=== PATIENT | female | born 1995 | race Caucasian/White ===

== ENCOUNTER 2018-11-14 17:31 | Emergency (ER) | payer OTHER ==
[2018-11-14 17:42] VITALS: BP 120/87; TEMP 98.7; BMI 25.8
--- NOTE | 2018-11-14 18:17 | ED.PDOC ---
General ED Provider: Dr. RENATA DUFFY Chief Complaint: Behavioral Complaint Stated Complaint: ANXIOUS OUT OF HER PYSCH MEDS STATES IF SHE GET A REFILL ON PYSCH MEDS SHE WONT CONSIDER SUICIDE BUT NO SO SURE OTHERWISE Time Seen by Physician: 17:33 (SEEN WITH CRAIG AT ALL TIMES ) Mode of Arrival: Walk-In Information Source: Patient, Family Exam Limitations: No limitations Primary Care Provider: ERNIE VU Nursing and Triage Documentation Reviewed and Agree: Yes Does patient meet sepsis criteria?: No System Inflammatory Response Syndrome: Not Applicable Sepsis Protocol: For patient's 13 years and over: Temp is 96.8 and below OR 101 and greater Pulse >90 BPM Resp >20/minute Acutely Altered Mental Status Are patient's symptoms suggestive of a new infection, such as: -Pneumonia -Skin, Soft Tissue -Endocarditis -UTI -Bone, Joint Infection -Implantable Device -Acute Abdominal Infection -Wound Infection -Meningitis -Blood Stream Catheter Infection -Unknown Psychological Complaint Exam - Psychiatric Complaint/Exam Patient Complains Of: Present: Depression, Suicidal thoughts (WAS DENIED IF MEDS ARE REFILLED. CRAIG PRESENT ATLL THE BEDSIDE ) Onset/Duration: TODAY SHE STATED HER DOCTOR LEFT THE AREA Symptoms Are: Still present Timing: Constant Episodes Lasting: Hours Initial Severity: Severe Current Severity: Severe Character: Present: Depressed, Fearful, Anxious Aggravating: Reports: None Associated Signs And Symptoms: Reports: Sleep disturbance, Appetite change. Denies: Hostile, Confused, Hallucinating, Paranoid behavior Related History: Denies: Suicidal thoughts, Suicidal plan, Suicidal gestures, Homicidal thoughts, Homicidal plan, Homicidal gestures, Prior attempts, Recent stressors Completed Suicide Risk Factors: None Patient In Custody Of Police: No Social Withdrawal Present: No Social Isolation Present: No Prior Suicide Attempt: No (MAY 2018 SEEN AT [facility] FOR THINKING OF IT NEVER DONE IT) Injury From Prior Suicide Attempt: No (NO ATTEMPT DURING PRESENT VISIT) Related Surgical History: Reports: None Patient Uncooperative For Exam: No Mood: Present: Depressed, Agitated, Anxious. Absent: Angry, Guarded, Paranoid, Hallucinating, Manic, Hearing voices Appearance: Present: Clean Thought Process: Present: Logical Insight: Present: Good Memory: Intact Judgement: Normal Danger To Others: No Patient Medically Stable For: Psych evaluation Differential Diagnoses: Anxiety, Depression Review of Systems - Review Of Systems Constitutional: Reports: No symptoms Eyes: Reports: No symptoms Ears, Nose, Mouth, Throat: Reports: No symptoms Respiratory: Reports: No symptoms Cardiac: Reports: No symptoms GI: Reports: No symptoms : Reports: No symptoms Musculoskeletal: Reports: No symptoms Skin: Reports: No symptoms Neurological: Reports: Emotional problems Endocrine: Reports: No symptoms Hematologic/Lymphatic: Reports: No symptoms All Other Systems: Reviewed and Negative Past Medical History - Past Medical History Previously Healthy: Yes Endocrine: Reports: None Cardiovascular: Reports: None Respiratory: Reports: None Hematological: Reports: None Gastrointestinal: Reports: None Genitourinary: Reports: None Neuro/Psych: Reports: Anxiety, Depression Musculoskeletal: Reports: None Cancer: Reports: None Last Menstrual Period: 11/2018 - Surgical History General Surgical History: Reports: None - Family History Family History: Reports: None - Social History Smoking Status: Never smoker Hx Substance Use: No Alcohol Screening: Occasionally - Immunizations Tetanus Shot up to Date: No Physical Exam - Physical Exam Appearance: Well-appearing, No pain distress, Well-nourished Eyes: SUSHILA, EOMI, Conjunctiva clear ENT: Ears normal, Nose normal, Oropharynx normal Respiratory: Airway patent, Breath sounds clear, Breath sounds equal, Respirations nonlabored Cardiovascular: RRR, Pulses normal, No rub, No murmur GI/: Soft, Nontender, No masses, Bowel sounds normal, No Organomegaly Musculoskeletal: Normal strength, ROM intact, No edema, No calf tenderness Skin: Warm, Dry, Normal color Neurological: Sensation intact, Motor intact, Reflexes intact, Cranial nerves intact, Alert, Oriented Psychiatric: Affect appropriate, Mood appropriate Physician Notification - Case Discussed Physician Notified: STANLEY Time of Notification: 19:00 Critical Care Note - Critical Care Note Total Time (mins): 0 Course - Course Hematology/Chemistry: 11/14/18 18:37 11/14/18 18:37 Orders, Labs, Meds: Lab Review 11/14/18 11/14/18 11/14/18 18:37 18:37 18:37 WBC 6.21 RBC 4.39 Hgb 13.1 Hct 40.1 MCV 91.3 MCH 29.8 MCHC 32.7 RDW Coeff of Ashok 12.1 Plt Count 322 Immature Gran % (Auto) 0.2 Neut % (Auto) 44.3 Lymph % (Auto) 48.5 [place] % (Auto) 5.5 Eos % (Auto) 1.0 Baso % (Auto) 0.5 Immature Gran # (Auto) 0.0 Neut # (Auto) 2.8 Lymph # (Auto) 3.0 [place] # (Auto) 0.3 L Eos # (Auto) 0.1 Baso # (Auto) 0.0 Sodium 138.8 Potassium 3.80 Chloride 101.6 Carbon Dioxide 29.4 Anion Gap 11.60 BUN 16.4 Creatinine 0.86 Estimated GFR (MDRD) 83.00 BUN/Creatinine Ratio 19.06 Glucose 98.5 Calcium 9.40 Total Bilirubin 0.64 AST 27.3 ALT 13.2 Alkaline Phosphatase 62.9 Total Protein 8.27 H Albumin 4.78 Globulin 3.49 Albumin/Globulin Ratio 1.36 Urine Color Urine Clarity Urine pH Ur Specific [place] Urine Protein Urine Glucose (UA) Urine Ketones Urine Blood Urine Nitrite Urine Bilirubin Urine Urobilinogen Ur Leukocyte Esterase Urine Test Salicylate Level mg/dL < 1.00 Urine Opiates Screen Negative Ur Oxycodone Screen Negative Urine Methadone Screen Negative Ur Propoxyphene Screen Negative Acetaminophen < 10.0 L Ur Barbiturates Screen Negative U Tricyclic Antidepress Positive Ur Phencyclidine Scrn Negative Ur Amphetamine Screen Negative U Methamphetamines Scrn Negative U Benzodiazepines Scrn Negative Urine Cocaine Screen Negative U Cannabinoids Screen Negative Plasma/Serum Alcohol < 10.0 11/14/18 11/14/18 18:37 18:37 WBC RBC Hgb Hct MCV MCH MCHC RDW Coeff of Ashok Plt Count Immature Gran % (Auto) Neut % (Auto) Lymph % (Auto) [place] % (Auto) Eos % (Auto) Baso % (Auto) Immature Gran # (Auto) Neut # (Auto) Lymph # (Auto) [place] # (Auto) Eos # (Auto) Baso # (Auto) Sodium Potassium Chloride Carbon Dioxide Anion Gap BUN Creatinine Estimated GFR (MDRD) BUN/Creatinine Ratio Glucose Calcium Total Bilirubin AST ALT Alkaline Phosphatase Total Protein Albumin Globulin Albumin/Globulin Ratio Urine Color Yellow Urine Clarity Clear Urine pH 7.0 Ur Specific [place] 1.020 Urine Protein Negative Urine Glucose (UA) Negative Urine Ketones Negative Urine Blood Negative Urine Nitrite Negative Urine Bilirubin Negative Urine Urobilinogen 1.0 Ur Leukocyte Esterase Negative Urine Test Negative Salicylate Level mg/dL Urine Opiates Screen Ur Oxycodone Screen Urine Methadone Screen Ur Propoxyphene Screen Acetaminophen Ur Barbiturates Screen U Tricyclic Antidepress Ur Phencyclidine Scrn Ur Amphetamine Screen U Methamphetamines Scrn U Benzodiazepines Scrn Urine Cocaine Screen U Cannabinoids Screen Plasma/Serum Alcohol Orders Category Date Time Status EKG-(ED ONLY) Stat CARDIO 11/14/18 18:22 Completed ED ACCOUNTING TUTOR APPLIED ONCE EMERGENCY 11/14/18 18:22 Active Mental Health Consult [ED MENTAL HEALTH CONSULT] .ONCE EMERGENCY 11/14/18 18: 22 Active ACETAMINOPHEN Stat LAB 11/14/18 18:37 Completed BLOOD ALCOHOL Stat LAB 11/14/18 18:37 Completed CBC W/ AUTO DIFF Stat LAB 11/14/18 18:37 Completed COMPREHENSIVE METABOLIC PANEL Stat LAB 11/14/18 18:37 Completed DRUG SCREEN, URINE, RAPID Stat LAB 11/14/18 18:37 Completed SALICYLATE Stat LAB 11/14/18 18:37 Completed URINALYSIS C & S IF INDICATED Stat LAB 11/14/18 18:37 Completed URINE Stat LAB 11/14/18 18:37 Completed Vital Signs: Temp Pulse Resp BP Pulse Ox 11/14/18 17:33 98.7 F 89 16 120/87 98 Departure - Departure Time of Disposition: 19:00 Disposition: HOME SELF-CARE Discharge Problem: Anxiety, Depression Instructions: Depression (ED), Depression (DC), Help Prevent Suicide (ED), Suicide Prevention (ED) Condition: Good Pt referred to PMD for follow-up: Yes IPMP verified?: No Additional Instructions: Please call your Family Physician as soon as possible to schedule a follow-up appointment. Allergies/Adverse Reactions: Allergies No Known Allergies Allergy (Unverified 11/14/18 17:51) Home Medications: Ambulatory Orders Fluoxetine HCl 30 mg PO DAILY 11/14/18 Quetiapine Fumarate [Seroquel] 500 mg PO DAILY 11/14/18 Disposition Discussed With: Patient Discharge Problem: Depression Qualifiers: Depression Type: unspecified Qualified Code(s): F32.9 - Major depressive disorder, single episode, unspecified
[2018-11-14 18:55] LABS: URINE PREGNANCY TEST NEGATIVE (NEGATIVE)
== END 2018-11-14 20:52 | disposition home or self-care (01) ==
LOC: ED 17:31
DX: F41.9 Anxiety disorder, unspecified (principal); F32.9 Major depressive disorder, single episode, unspecified
CPT/HCPCS: 36415; 80053; 80306; 80307; 81001; 81025; 85025; 93005; 93010; 99283